=== PATIENT | male | born 1990 | race Caucasian/White ===

== ENCOUNTER 2022-11-27 17:08 | Inpatient (IN) | payer OTHER ==
[2022-11-27 17:33] VITALS: BMI 21.1
[2022-11-27] MEDS ORDERED: METHOCARBAMOL 500 MG TABLET PO PRN (18:34)
[2022-11-27] MEDS ORDERED: NALOXONE HCL 0.4 MG/ML VIAL IM PRN (18:34)
[2022-11-27] MEDS ORDERED: POLYETHYLENE GLYCOL (HEALTHYLAX) 3350 17 GM PACKET PO PRN (18:34)
[2022-11-27] MEDS ORDERED: BISMUTH SUBSALICYLATE 524 MG/30 ML PO PRN (18:34)
[2022-11-27] MEDS ORDERED: MAG HYDROX/AL HYDROX/SIMETH 30 ML UNIT-DOSE CUP PO PRN (18:34)
[2022-11-27] MEDS ORDERED: DICYCLOMINE HCL 10 MG CAPSULE PO PRN (18:34)
[2022-11-27] MEDS ORDERED: hydrOXYzine PAMOATE 25 MG CAPSULE (FP) PO PRN (18:34)
[2022-11-27] MEDS ORDERED: BENZONATATE 200 MG CAPSULE PO PRN (18:34)
[2022-11-27] MEDS ORDERED: guaiFENesin 600 MG TABLET.ER (FP) PO PRN (18:34)
[2022-11-27] MEDS ORDERED: BENZOCAINE/MENTHOL (CHLORASEPTIC ) LOZENGE MM PRN (18:34)
[2022-11-27] MEDS ORDERED: ONDANSETRON *ODT* 4 MG TABLET SL PRN (18:34)
[2022-11-27] MEDS ORDERED: IBUPROFEN 400 MG TABLET (FP) PO PRN (18:34)
[2022-11-27] MEDS ORDERED: IBUPROFEN 600 MG TABLET (FP) PO PRN (18:34)
[2022-11-27] MEDS ORDERED: NALOXONE HCL (KLOXXADO) 8 MG SPRAY NS PRN (18:34)
[2022-11-27] MEDS ORDERED: MAGNESIUM HYDROX 2400MG/30ML ORAL SUSPENSION 30 ML CUP PO PRN (18:34)
[2022-11-27] MEDS: diazePAM 5 MG TABLET PO PRN (19:39)
[2022-11-27] MEDS ORDERED: MELATONIN 5 MG TABLETS PO SCH (22:00)
[2022-11-27] MEDS: diazePAM 5 MG TABLET PO SCH (22:17)
[2022-11-27] MEDS: THIAMINE HCL 100 MG TABLET (FP) PO SCH (22:17)
[2022-11-28] MEDS: ACETAMINOPHEN 325 MG TABLET (FP) PO PRN (05:10)
[2022-11-28] MEDS: diazePAM 5 MG TABLET PO SCH ×4 (05:10→22:17)
[2022-11-28] MEDS: NICOTINE POLACRILEX 2 MG GUM BUC PRN ×3 (07:00→22:17)
[2022-11-28] MEDS: PRENATAL VITAMINS W/ FOLIC ACID TABLET (FP) PO SCH (10:10)
[2022-11-28] MEDS: NICOTINE 21 MG/24 HOURS TOPICAL PATCH TD SCH (10:11)
[2022-11-28] MEDS: FAMOTIDINE 20 MG TABLET PO SCH (10:11)
[2022-11-28 10:48] LABS: HEMATOCRIT 42.2 % (35.4-49); HEMOGLOBIN 14.2 GM/dL (11.7-16.9); MCH 32.3 pg (25.7-33.7); MCHC 33.8 g/dl (32.0-35.9); MEAN CELL VOLUME 95.6 fl (80-96); MEAN PLT VOLUME 8.9 fl (7.5-11.1); PLATELET COUNT 191 10^3/uL (134-434); RBC 4.41 M/mm3 (4.00-5.60); RDW 13.7 % (11.9-15.9); WHITE BLOOD COUNT 6.4 K/mm3 (4.0-10.0)
[2022-11-28 10:50] LABS: POTASSIUM 3.8 mmol/L (3.5-5.1)
[2022-11-28 10:53] LABS: CALCIUM 8.9 mg/dL (8.5-10.1)
[2022-11-28 10:54] LABS: ALBUMIN 3.2 g/dl (3.4-5.0); BLOOD UREA NITROGEN 11.3 mg/dL (7-18)
[2022-11-28 10:57] LABS: CREATININE 1.2 mg/dL (0.55-1.3)
[2022-11-28 10:58] LABS: BILIRUBIN,TOTAL 0.8 mg/dL (0.2-1); TOT PROT 5.5 g/dl (6.4-8.2)
[2022-11-28 11:58] LABS: HIV INTERPRETATION NEGATIVE (NEGATIVE)
[2022-11-28] MEDS: LOPERAMIDE HCL 2 MG CAPSULE PO PRN (19:09)
[2022-11-28] MEDS: THIAMINE HCL 100 MG TABLET (FP) PO SCH (22:16)
[2022-11-28] MEDS: diphenhydrAMINE HCL 25 MG CAPSULE (FP) PO SCH (22:16)
[2022-11-29] MEDS: diazePAM 5 MG TABLET PO SCH ×3 (05:19→22:09)
[2022-11-29] MEDS: NICOTINE POLACRILEX 2 MG GUM BUC PRN ×3 (08:11→13:14)
[2022-11-29] MEDS ORDERED: LITHIUM CARBONATE 150 MG CAPSULE PO SCH (10:00)
[2022-11-29] MEDS: NICOTINE 21 MG/24 HOURS TOPICAL PATCH TD SCH (10:07)
[2022-11-29] MEDS: PRENATAL VITAMINS W/ FOLIC ACID TABLET (FP) PO SCH (10:07)
[2022-11-29] MEDS: diazePAM 5 MG TABLET PO PRN ×2 (10:07→17:38)
[2022-11-29] MEDS: FAMOTIDINE 20 MG TABLET PO SCH (10:07)
[2022-11-29] MEDS: busPIRone HCL 10 MG TABLET (FP) PO SCH ×2 (13:13→22:08)
[2022-11-29] MEDS: THIAMINE HCL 100 MG TABLET (FP) PO SCH (22:09)
[2022-11-29] MEDS: ACETAMINOPHEN 325 MG TABLET (FP) PO PRN (22:10)
[2022-11-29] MEDS: diphenhydrAMINE HCL 25 MG CAPSULE (FP) PO SCH (22:11)
[2022-11-30] MEDS: busPIRone HCL 10 MG TABLET (FP) PO SCH ×3 (05:51→22:15)
[2022-11-30] MEDS: diazePAM 5 MG TABLET PO SCH ×2 (05:52→17:37)
[2022-11-30] MEDS: NICOTINE POLACRILEX 2 MG GUM BUC PRN ×5 (06:37→21:34)
[2022-11-30] MEDS: FAMOTIDINE 20 MG TABLET PO SCH (10:09)
[2022-11-30] MEDS: PRENATAL VITAMINS W/ FOLIC ACID TABLET (FP) PO SCH (10:09)
[2022-11-30] MEDS: NICOTINE 21 MG/24 HOURS TOPICAL PATCH TD SCH (10:10)
[2022-11-30] MEDS: LOPERAMIDE HCL 2 MG CAPSULE PO PRN (14:42)
[2022-11-30] MEDS: diphenhydrAMINE HCL 25 MG CAPSULE (FP) PO SCH (22:16)
[2022-11-30] MEDS: THIAMINE HCL 100 MG TABLET (FP) PO SCH (22:16)
[2022-12-01] MEDS: busPIRone HCL 10 MG TABLET (FP) PO SCH (05:29)
[2022-12-01] MEDS ORDERED: diazePAM 5 MG TABLET PO ONE (06:00)
[2022-12-01] MEDS: NICOTINE POLACRILEX 2 MG GUM BUC PRN ×2 (07:56→10:15)
[2022-12-01 09:03] VITALS: BP 133/84; PULSE 89; RESP 18; TEMP 97.1
[2022-12-01] MEDS: FAMOTIDINE 20 MG TABLET PO SCH (09:47)
[2022-12-01] MEDS: PRENATAL VITAMINS W/ FOLIC ACID TABLET (FP) PO SCH (09:47)
[2022-12-01] MEDS: NICOTINE 21 MG/24 HOURS TOPICAL PATCH TD SCH (09:48)
== END 2022-12-01 11:09 | disposition home or self-care (01) | DRG 775 ==
LOC: YASAS 17:08 → Y3N 18:59
PROVIDERS: ADMIT Allergy & Immunology; ATTEND Surgery
PROC: HZ2ZZZZ Detoxification Services for Substance Abuse Treatment (ICD-10-PCS; principal; 2022-11-27)
DX: F10.230 Alcohol dependence with withdrawal, uncomplicated (principal); F17.210 Nicotine dependence, cigarettes, uncomplicated; F19.94 Other psychoactive substance use, unspecified with psychoactive substance-induced mood disorder; F90.9 Attention-deficit hyperactivity disorder, unspecified type; F51.05 Insomnia due to other mental disorder; Z28.310 Unvaccinated for COVID-19; Z86.59 Personal history of other mental and behavioral disorders; Z56.0 Unemployment, unspecified; Z59.00 Homelessness unspecified
CPT/HCPCS: 36415; 80053; 80178; 85027; 86780; 87389; 87635